=== PATIENT | male | born 1945 | race Caucasian/White ===

== ENCOUNTER 2022-08-17 00:18 | Emergency (ER) | payer MEDICARE ==
[2022-08-17 00:40] LABS: BASOPHILS ABSOLUTE AUTO 0.01 K/mm3 (0.01-0.08); BASOPHILS PERCENT AUTO 0.2 % (0.1-1.2); EOSINOPHILS ABSOLUTE AUTO 0.29 K/mm3 (0.04-0.54); EOSINOPHILS PERCENT AUTO 5.2 (0.8-7.0); HEMATOCRIT 31.1 % (40.1-51.0); HEMOGLOBIN 9.9 gm/dl (13.7-17.5); IMMATURE GRAN ABSOLUTE AUTO 0.05 K/mm3 (0.00-0.10); IMMATURE GRAN PERCENT AUTO 0.9 % (<=1.0); LYMPHOCYTES ABSOLUTE AUTO 1.43 K/mm3 (1.32-3.57); LYMPHOCYTES PERCENT AUTO 25.5 % (21.8-53.1); MEAN CORPUSCULAR HEMOGLOBIN 34.3 pg (25.7-32.2); MEAN CORPUSCULAR HGB CONC 31.8 g/dl (32.2-35.5); MEAN CORPUSCULAR VOLUME 107.6 fl (79.0-92.2); MONOCYTES ABSOLUTE AUTO 0.84 K/mm3 (0.30-0.82); NEUTROPHILS ABSOLUTE AUTO 2.99 K/mm3 (1.78-5.38); NEUTROPHILS PERCENT AUTO 53.2 % (34.0-67.9); PLATELET COUNT,PLT 234 K/mm3 (163-337); RED BLOOD CELL COUNT 2.89 M/mm3 (4.63-6.08); WHITE BLOOD CELL COUNT,WBC 5.61 K/mm3 (4.23-9.07)
[2022-08-17 00:59] LABS: A/G RATIO 1.2 (1-2); ALBUMIN 3.8 g/dl (3.4-5.0); ANION GAP 11.5 (5-15); BUN/CREATININE RATIO 16.4 (14-18); CALCIUM 8.8 mg/dL (8.5-10.1); CREATININE 1.4 mg/dL (0.7-1.3); EST CRCL DRUG DOSING (CG) 38.61 mL/min; POTASSIUM,K 4.5 mEq/L (3.5-5.1); PROTEIN TOTAL,TP 6.9 g/dl (6.4-8.2)
[2022-08-17] MEDS ORDERED: amLODIPine 5 MG Tab PO ONE (01:26)
[2022-08-17] MEDS ORDERED: Apixaban 5 MG Tab PO ONE (01:27)
== END 2022-08-17 02:40 | disposition home or self-care (01) ==
LOC: JD.ED 00:18
DX: T39.1X1A Poisoning by 4-Aminophenol derivatives, accidental (unintentional), initial encounter (principal)
CPT/HCPCS: 36415; 80053; 80143; 80179; 85025; 99283; 99284